=== PATIENT | male | born 1960 | race Caucasian/White ===

== ENCOUNTER → 2017-05-21 | Outpatient (CLI) | payer MEDICAID ==
[~2017-05-21] MED LIST: CATHETER FLUSH 10 ML SYR IV PRN
[2017-05-21 08:08] LABS: BASOPHILS % (AUTO) 0 % (0-10); EOSINOPHILS % (AUTO) 1 % (0-10); HEMATOCRIT 42 % (40-54); HEMOGLOBIN 14.3 G/DL (13.3-17.7); LYMPHOCYTES # (AUTO) 2.6 X 10^3 (1.0-4.0); LYMPHOCYTES % (AUTO) 36 % (12-44); MEAN CORPUSCULAR HEMOGLOBIN 28 PG (25-34); MEAN CORPUSCULAR HGB CONC 34 G/DL (32-36); MEAN CORPUSCULAR VOLUME 83 FL (80-99); MEAN PLATELET VOLUME 11.1 FL (7.4-10.4); MONOCYTES # (AUTO) 0.8 X 10^3 (0.0-1.0); MONOCYTES % (AUTO) 11 % (0-12); NEUTROPHILS # (AUTO) 3.7 X 10^3 (1.8-7.8); NEUTROPHILS % (AUTO) 52 % (42-75); PLATELET COUNT 247 10^3/uL (130-400); RED BLOOD COUNT 5.03 10^6/uL (4.35-5.85); RED CELL DISTRIBUTION WIDTH 13.8 % (10.0-14.5); WHITE BLOOD COUNT 7.2 10^3/uL (4.3-11.0)
[2017-05-21 08:31] LABS: ALANINE AMINOTRANSFERASE 21 U/L (0-55); ALKALINE PHOSPHATASE 112 U/L (40-136); BILIRUBIN,TOTAL 0.5 MG/DL (0.1-1.0); BUN/CREATININE RATIO 20; CALCIUM 9.7 MG/DL (8.5-10.1); CARBON DIOXIDE 23 MMOL/L (21-32); CHLORIDE 106 MMOL/L (98-107); CHOLESTEROL 161 MG/DL (< 200); CREATININE SERUM 0.96 MG/DL (0.60-1.30); GFR ESTIMATED > 60; GLUCOSE 111 MG/DL (70-105); HDL CHOLESTEROL 40 MG/DL (40-60); MAGNESIUM 2.2 MG/DL (1.8-2.4); POTASSIUM 4.1 MMOL/L (3.6-5.0); SODIUM 140 MMOL/L (135-145); TOTAL PROTEIN 7.3 GM/DL (6.4-8.2); TRIGLYCERIDES 98 MG/DL (<150); VLDL CHOLESTEROL 20 MG/DL (5-40)
[2017-05-21 08:57] LABS: ERYTHROCYTE SEDIMENTATION RATE 14 MM/HR (0-30)
[2017-05-21 09:00] VITALS: BP 114/82
[2017-05-21 09:15] VITALS: BP 139/90
[2017-05-21 09:21] VITALS: BP 112/60
== END ==
LOC: CARD 07:43
PROVIDERS: ATTEND Internal Medicine Cardiovascular Disease
DX: J43.8 Other emphysema (principal); R06.02 Shortness of breath; R07.89 Other chest pain; G47.33 Obstructive sleep apnea (adult) (pediatric); E78.4 Other hyperlipidemia; I73.9 Peripheral vascular disease, unspecified
CPT/HCPCS: 36415; 78452; 80053; 80061; 83735; 84443; 85025; 85652; 93017

== ENCOUNTER → 2017-05-27 | Outpatient (CLI) | payer MEDICAID | LOC: CARD 10:16 | PROVIDERS: ATTEND Internal Medicine Cardiovascular Disease | DX: R06.02 Shortness of breath (principal); R07.89 Other chest pain; J43.8 Other emphysema; G47.33 Obstructive sleep apnea (adult) (pediatric); E78.4 Other hyperlipidemia; I73.9 Peripheral vascular disease, unspecified | CPT/HCPCS: 93306 ==

== ENCOUNTER → 2017-06-30 | Outpatient (CLI) | payer MEDICAID | LOC: RAD 13:13 | PROVIDERS: ATTEND Nurse Practitioner Family | DX: I73.9 Peripheral vascular disease, unspecified (principal) | CPT/HCPCS: 93923 ==

== ENCOUNTER 2018-09-21 08:41 | Day surgery (SDC) | payer MEDICAID ==
[~2018-09-21] VITALS: Ht 172.7 cm; Wt 86.6 kg
[2018-09-21] VITALS (10 sets, daily range): BP systolic 101–127; BP diastolic 63–90
[2018-09-21] MEDS ORDERED: LIDOCAINE 1% INJ 20 ML 20 ML VIAL ONE (09:15)
[2018-09-21] MEDS ORDERED: HEParin (CATH LAB) 2,000 ML IV ONE (09:15)
[2018-09-21] MEDS ORDERED: NS IV 1000 ML 1,000 ML IV SCH ×2 (09:15→12:41)
--- OUTSIDE RECORDS SUMMARY | 2018-09-21 09:30 | XMS REPORT ---
Author Author Re Suarez Organization [facility] Address [address] [place] [id number] Care Team Providers Care Gun Tester Name Role Phone Re Suarez PCP Allergies and Adverse Reactions Name Reaction Notes Flexeril swelling Plan of Treatment Not available. Medications Active Name Start Date Estimated Completion Date SIG Comments Aspirin Oral Tablet 81 mg take 1 tablet (81 mg) by oral route once daily Albuterol Sulfate Inhalation HFA Aerosol Inhaler 90 mcg/Actuation inhale 2 puffs by inhalation route every 4 hours as needed Pravastatin Oral Tablet 20 mg take 1 tablet (20 mg) by oral route once daily B12 5,000-100 mcg sublingual lozenge ranitidine HCl 150 mg oral capsule Name Start Date Expiration Date SIG Comments hydrocodone-acetaminophen oral tablet 7.5-325 mg 12/05/2014 take 1 tablet by oral route every 6 hours as needed for pain Augmentin 875-125 mg oral tablet 03/24/2018 03/31/2018 take 1 tablet by oral route every 12 hours for 7 days amoxicillin 500 mg oral capsule 05/28/2018 06/07/2018 take 1 capsule (500 mg) by oral route every 12 hours for 10 days prednisone 20 mg oral tablet 05/28/2018 06/02/2018 take 1 tablet (20 mg) by oral route once daily for 5 days Discontinued Name Start Date Discontinued Date SIG Comments Singulair Oral Tablet 10 mg 05/28/2018 take 1 tablet by oral route daily as needed Vitamin D Oral Capsule 50,000 unit 05/28/2018 take 1 capsule (50,000 unit) by oral route once weekly Baclofen Oral Tablet 10 mg 04/29/2010 03/13/2014 take 1 tablet (10 mg) by oral route 3 times per day Problem List Not available. Vital Signs Date Time BP-Sys(mm[Hg] BP-Yvrose(mm[Hg]) HR(bpm) RR(rpm) Temp WT HT HC BMI BSA BMI Percentile O2 Sat(%) 05/28/2018 12:17:00 PM 128 mmHg 90 mmHg 84 bpm 18 rpm 98.2 F 189.5 lbs 66.5 in 30.1276 kg/m 2.0082 m 97 % 03/24/2018 5:44:00 PM 128 mmHg 68 mmHg 63 bpm 20 rpm 97.5 F 179.375 lbs 98 % 12/01/2014 8:41:00 AM 110 mmHg 60 mmHg 62 bpm 18 rpm 98.5 F 98 % 03/13/2014 9:34:00 AM 120 mmHg 75 mmHg 62 bpm 18 rpm 98.6 F 166 lbs 97 % 04/29/2010 10:57:00 AM 110 mmHg 80 mmHg 70 bpm 18 rpm 95.7 F 99 % 04/09/2009 10:35:00 AM 122 mmHg 90 mmHg 70 bpm 16 rpm 96.2 F 171.312 lbs 66.5 in 27.236 kg/m 1.9094 m Social History Name Description Comments Tobacco Former smoker quit 2014 11 th grade highest level Smoker Current - status unknown Active but no formal exercise self employed Did not serve History of Procedures Date Ordered Description Order Status 03/13/2014 12:00 AM COMPLETE CBC W/AUTO DIFF WBC Reviewed 03/13/2014 12:00 AM GLYCOSYLATED HEMOGLOBIN TEST Reviewed 03/13/2014 12:00 AM BLOOD TYPING SEROLOGIC ABO Reviewed 12/01/2014 12:00 AM Orthopedic Consult Reviewed Results Summary Date and Description Results 03/13/2014 10:30 AM WBC 9.8 RBC 4.84 HGB 14.30 g/dLHCT 41.90 %MCV 87.0 fLMCH 29.50 pgMCHC 34.10 g/dLRDW SD 44 RDW CV 14.0 %MPV 11.80 fLPLT 212 NRBC# 0.00 NRBC% 0.0 %NEUT 62.50 %%LYMP 31.60 %%MONO 5.50 %%EOS 0.30 %%BASO 0.10 %#NEUT 6.15 #LYMP 3.11 #MONO 0.54 #EOS 0.03 #BASO 0.01 MANUAL DIFF NOT IND HGB A1C 6.50 %Est Avg Glucose 139.9 mg/dL History Of Immunizations Not available. History of Past Illness Name Date of Onset Comments Chest Pain Apr 09 2009 10:47AM Chronic Obstructive Pulmonary Disease Apr 09 2009 10:47AM Asthma Chronic Obstructive Pulmonary Disease Seizure disorder Headache Chronic Obstructive Pulmonary Disease Apr 29 2010 10:58AM Low Back Pain Apr 29 2010 10:58AM Fatigue Mar 13 2014 9:36AM Hypoglycemia Mar 13 2014 9:36AM Costochondral chest pain Mar 13 2014 9:36AM Left medial knee pain Mar 13 2014 9:36AM Lumbar back pain Dec 01 2014 8:43AM Spinal stenosis of lumbar region at multiple levels Dec 01 2014 8:43AM Puncture wound Mar 24 2018 5:47PM Acute upper respiratory infection May 28 2018 12:19PM Payers Insurance Name Company Name Plan Name Plan Number Policy Number Policy Group Number Start Date [employer] Better [employer] - RHC Aetna Better [facility] - RHC [id number] N/A [email or web address] Financial Assistance [email or web address] Financial Vanessa [id number] Saturday, 2013 [employer] [place] Plan [employer] [place] [id number] N/A [employer] - [place] - [place] State Plan [employer] - [place] [id number] N/A History of Encounters Visit Date Visit Type Provider 05/28/2018 Office visit Re Suarez FRAUD INVESTIGATOR 04/14/2018 Hospital Derrick Gutierrez MD 03/24/2018 Office visit Cristal Palacios FRAUD INVESTIGATOR 02/12/2018 Hospital Derrick Gutierrez MD 02/08/2018 Hospital Derrick Gutierrez MD 01/18/2018 Hospital Derrick Gutierrez MD 12/19/2017 Hospital Derrick Gutierrez MD 03/06/2017 Hospital Derrick Gutierrez MD 12/01/2014 Office visit Ronal Deleon FRAUD INVESTIGATOR 04/12/2014 Hospital Derrick Gutierrez MD 03/13/2014 Office visit Ronal Deleon FRAUD INVESTIGATOR 03/08/2014 Hospital Derrick Gutierrez MD 02/13/2014 Hospital Derrick Gutierrez MD 06/05/2011 Hospital Derrick Gutierrez MD 04/29/2010 Office visit Beata Chapman MD 05/03/2009 Laboratory Chinmay Lovett MD 05/03/2009 Laboratory Chinmay Lovett MD 04/09/2009 Office visit Beata Chapman MD 03/31/2009 Laboratory Meliton Nixon MD
--- OUTSIDE RECORDS SUMMARY | 2018-09-21 09:30 | XMS REPORT | CCD ---
Author Author AAMIR DHALIWAL Organization Unknown Address [address] [place], [place] [address] Care Team Providers Care Inspector Casing Name Role Phone HANDSHY ER, AXEL ARRIETA Attphys HANDSHY ER, AXEL ARRIETA Prisurg Vital Signs Unknown or Not Available. Allergies Allergy Code Allergy Type Reaction Status CYCLOBENZAPRINE 69423 Drug allergy Active Procedures Procedure Code Procedure Type Date CBC W/ AUTO DIFF (RFLX MAN DIFF IF IND) 1430292 SNOMED CT 04/12/2014 COMPREHENSIVE METABOLIC PANEL 371471771 SNOMED CT 04/12/2014 TROPONIN-I ADV 654166868 SNOMED CT 04/12/2014 D DIMER QUANT 008971528 SNOMED CT 04/12/2014 CULTURE BLOOD 23454763 SNOMED CT 04/12/2014 ^CBC W/AUTO DIFF 7723550 SNOMED CT 04/12/2014 HOLTER MONITOR UP TO [address] 04/12/2014 THYROID PANEL 28996570 SN[address] 04/12/2014 CX CHEST [address] 04/12/2014 History of Immunizations Unknown or Not Available. Problems Unknown or Not Available. Results COMPREHENSIVE METABOLIC PANEL - Collect Date/Time: 04/12/2014 01:25 Test Name Code Test Result Test Units Test Ref Range GLUCOSE 2345-7 107 MG/DL L=70 H=100 SODIUM 2951-2 139 MEQ/L L=135 H=148 POTASSIUM 2823-3 4.1 MEQ/L L=3.5 H=5.3 CHLORIDE 2075-0 105 MEQ/L L=96 H=110 CO2 2028-9 22 MEQ/L L=22 H=29 BUN 3094-0 14 MG/DL L=8 H=22 CREATININE 2160-0 0.9 MG/DL L=0.6 H=1.6 SGOT/AST 1920-8 21 IU/L L=10 H=40 SGPT/ALT 1742-6 20 IU/L L=8 H=54 ALK PHOS 6768-6 71 IU/L L=35 H=115 TOTAL PROTEIN 2885-2 7.3 G/DL L=5.5 H=8.5 ALBUMIN 1751-7 4.1 G/DL L=3.1 H=5.4 TOTAL BILI 1975-2 0.4 MG/DL L=0.0 H=1.5 CALCIUM 58660-3 9.6 MG/DL L=8.2 H=10.6 AGE 53 yrs GFR NonAA 88 GFR AA 107 eGFR 60 mL/min/1.7 eGFR AA* 60 mL/min/1.7 CBC W/ AUTO DIFF (RFLX MAN DIFF IF IND) - Collect Date/Time: 04/12/2014 01:25 Test Name Code Test Result Test Units Test Ref Range WBC 32440-5 9.7 TH/CMM L=4.5 H=10.8 RBC 789-8 4.66 ML/CMM L=4.70 H=6.10 HGB 718-7 13.9 G/DL L=14.0 H=18.0 HCT 4544-3 40.5 % L=42.0 H=52.0 MCV 87 FL L=81 H=99 MCH 29.8 PG L=27.0 H=33.0 MCHC 34.3 G/DL L=31.0 H=36.0 RDW SD 42 FL L=36 H=50 RDW CV 13.3 % L=0.0 H=14.8 MPV 12.5 FL L=9.3 H=12.5 PLT 777-3 181 TH/CMM L=130 H=440 NRBC# 0.00 TH/CMM L=0.00 H=0.00 NRBC% 0.0 /100WBC L=0.0 H=2.0 %NEUT 58.3 % %LYMP 34.3 % %MONO 6.7 % %EOS 0.5 % %BASO 0.2 % #NEUT 5.65 TH/CMM L=2.10 H=8.20 #LYMP 3.33 TH/CMM L=0.90 H=5.20 #MONO 0.65 TH/CMM L=0.16 H=1.00 #EOS 0.05 TH/CMM L=0.00 H=0.80 #BASO 0.02 TH/CMM L=0.00 H=0.20 MANUAL DIFF NOT IND N/A D DIMER QUANT - Collect Date/Time: 04/12/2014 01:25 Test Name Code Test Result Test Units Test Ref Range D-DIMER QUANT 94902-8 <0.19 MG/L FEU L=0.00 H=0.50 TROPONIN-I ADV - Collect Date/Time: 04/12/2014 01:25 Test Name Code Test Result Test Units [place] [address]-5 <0.04 ng/mL L=0.04 H=0.40 THYROID PANEL - Collect Date/Time: 04/12/2014 01:25 Test Name Code Test Result Test Units Test Ref Range FREE T4 3024-7 1.05 NG/DL L=0.71 H=1.85 TSH 84132-2 3.98 mIU/L L=0.35 H=4.94 Active Medications Unknown or Not Available. Medications Administered During Visit Unknown or Not Available. Encounters Encounter Diagnosis Diagnosis Code Start Date PAINFUL RESPIRATION 92493 04/12/2014 Social History Smoking Status Code Start Date End Date Current some day smoker [id number] Patient Decision Aids Unknown or Not Available. Discharge Instructions You were admitted to [facility] on 04/12/2014 with a principal diagnosis of PAINFUL RESPIRATION. You were discharged from [facility] on 04/12/2014. Should you have any questions prior to discharge, please contact a member of your healthcare team. If you have left the hospital and have any questions, please contact your primary care physician. Chief Complaint and Reason For Visit Chief Complaint Date of Onset CHEST WALL PAIN SHOULDER PAIN NECK PAIN Function Status Unknown or Not Available. Referral/Transition of Care Unknown or Not Available.
--- OUTSIDE RECORDS SUMMARY | 2018-09-21 09:30 | XMS REPORT ---
Author Cristal Palumbo [facility] Address [address] [place], [place] [address] Care Team Providers Care Shrimp Boat Captain Name Role Phone Cristal Guzmán PCP Allergies and Adverse Reactions Name Reaction Notes Flexeril swelling Plan of Treatment Not available. Medications Active Name Start Date Estimated Completion Date SIG Comments Aspirin Oral Tablet 81 mg take 1 tablet (81 mg) by oral route once daily Singulair Oral Tablet 10 mg take 1 tablet by oral route daily as needed Albuterol Sulfate Inhalation HFA Aerosol Inhaler 90 mcg/Actuation inhale 2 puffs by inhalation route every 4 hours as needed Pravastatin Oral Tablet 20 mg take 1 tablet (20 mg) by oral route once daily Vitamin D Oral Capsule 50,000 unit take 1 capsule (50,000 unit) by oral route once weekly hydrocodone-acetaminophen oral tablet 7.5-325 mg 12/05/2014 take 1 tablet by oral route every 6 hours as needed for pain Augmentin 875-125 mg oral tablet 03/24/2018 03/31/2018 take 1 tablet by oral route every 12 hours for 7 days Discontinued Name Start Date Discontinued Date SIG Comments Baclofen Oral Tablet 10 mg 04/29/2010 03/13/2014 take 1 tablet (10 mg) by oral route 3 times per day Problem List Not available. Vital Signs Date Time BP-Sys(mm[Hg] BP-Yvrose(mm[Hg]) HR(bpm) RR(rpm) Temp WT HT HC BMI BSA BMI Percentile O2 Sat(%) 03/24/2018 5:44:00 PM 128 mmHg 68 mmHg [...] 1.9094 m Social History Name Description Comments 11 th grade highest level Smoker Current [...] 8:43AM Puncture wound Mar 24 2018 5:47PM Payers Insurance Name Company Name Plan Name Plan Number Policy Number Policy Group Number Start Date [employer] [place] [employer] [place] [id number] N/A [employer] Vanessa [id number] Saturday, 2013 History of Encounters Visit Date Visit Type Provider 03/24/2018 Office visit Cristal Guzmán DIESEL DINKEY OPERATOR 01/18/2018 Hospital Derrick Gutierrez MD 12/19/2017 [facility] Derrick Gutierrez MD 03/06/2017 [facility] Derrick Gutierrez MD 12/01/2014 Office visit Ronal Deleon DIESEL DINKEY OPERATOR 04/12/2014 [facility] Derrick Gutierrez MD 03/13/2014 Office visit Ronal Deleon DIESEL DINKEY OPERATOR 03/08/2014 [facility] Derrick Gutierrez MD 02/13/2014 [facility] Derrick Gutierrez MD 06/05/2011 [facility] Derrick Gutierrez MD 04/29/2010 Office visit Beata Chapman MD 05/03/2009 Laboratory Chinmay Lovett MD 05/03/2009 Laboratory Chinmay Lovett MD 04/09/2009 Office visit Beata Chapman MD 03/31/2009 Laboratory Meliton Nixon MD
--- OUTSIDE RECORDS SUMMARY | 2018-09-21 09:30 | XMS REPORT | CCD ---
Author Author DEMARCUS LOZOYA Organization Unknown Address [address] [place] [address] Care Team Providers Care Tear Down Matcher Name Role Phone [facility], JOSEPH DO Attphys [facility], JOSEPH DO Prisurg Allergies Allergy Code Allergy Type Reaction Status CYCLOBENZAPRINE 80328 Drug allergy Active Active Medications Unknown or Not Available. Problems Unknown or Not Available. Procedures Unknown or Not Available. Results Unknown or Not Available. Encounters Encounter Diagnosis Diagnosis Code Start Date Other superficial bite, right lower leg, initial encounter [id number] 09/08/2016 Function Status Unknown or Not Available. History of Immunizations Unknown or Not Available. Social History Smoking Status Code Start Date End Date Current some day smoker [id number] Vital Signs Unknown or Not Available. Function Status Unknown or Not Available. Goals Unknown or Not Available. ASSESSMENTS Unknown or Not Available. Health Concerns Section Unknown or Not Available.
--- OUTSIDE RECORDS SUMMARY | 2018-09-21 09:30 | XMS REPORT | CCD ---
Author Author MELIA MACKENZIE Unknown Address [address] [place] [address] Care Team Providers Care Radiation Officer Name Role Phone MISTI LEOS MD Attphys 0 MISTI LEOS MD Prisurg 0 Allergies Allergy Code Allergy Type Reaction Status CYCLOBENZAPRINE 96505 Drug allergy Active Active Medications Unknown or Not Available. Problems Unknown or Not Available. Procedures Procedure Code Procedure Type Date CT ABD AND PELVIS W/CONTRAST 267761286 SNOMED CT 03/06/2017 CX CHEST [address] 03/06/[address] 03/06/2017 TROPONIN-I ADV 194023217 SNOMED CT 03/06/[address] 03/06/2017 CBC W/ AUTO DIFF (RFLX MAN DIFF IF IND) 6996782 SNOMED CT 03/06/2017 COMPREHENSIVE METABOLIC PANEL 503133931 SNOMED CT 03/06/[address] 03/06/2017 ^CBC W/AUTO DIFF 0567684 SNOMED CT 03/06/2017 LOCM 300-349 MG/ML, PER ML 174526650 SNOMED CT 03/06/2017 Results COMPREHENSIVE METABOLIC PANEL - Collect Date/Time: 03/06/2017 01:45 Test Name Code Test Result Test Units Test Ref Range GLUCOSE 2345-7 153 MG/DL L=70 H=100 SODIUM 2951-2 140 MEQ/L L=135 H=148 POTASSIUM 2823-3 3.4 MEQ/L L=3.5 H=5.3 CHLORIDE 2075-0 109 MEQ/L L=96 H=110 CO2 2028-9 24 MEQ/L L=22 H=29 BUN 3094-0 19 MG/DL L=8 H=22 CREATININE 2160-0 1.0 MG/DL L=0.6 H=1.6 SGOT/AST 1920-8 20 IU/L L=10 H=40 SGPT/ALT 1742-6 23 IU/L L=8 H=54 ALK PHOS 6768-6 117 IU/L L=35 H=115 TOTAL PROTEIN 2885-2 6.7 G/DL L=5.5 H=8.5 ALBUMIN 1751-7 3.7 G/DL L=3.1 H=5.4 TOTAL BILI 1975-2 0.4 MG/DL L=0.0 H=1.5 CALCIUM 78616-7 9.0 MG/DL L=8.2 H=10.6 AGE 56 yrs GFR NonAA 77 GFR AA 93 eGFR >60 N/A eGFR AA* >60 N/A LIPASE - Collect Date/Time: 03/06/2017 01:45 Test Name Code Test Result Test Units Test Ref Range LIPASE 3040-3 26 U/L L=8 H=78 CBC W/ AUTO DIFF (RFLX MAN DIFF IF IND) - Collect Date/Time: 03/06/2017 01:45 Test Name Code Test Result Test Units Test Ref Range WBC 58807-4 6.5 TH/CMM L=4.5 H=10.8 RBC 789-8 4.68 ML/CMM L=4.70 H=6.10 HGB 718-7 13.1 G/DL L=14.0 H=18.0 HCT 4544-3 39.9 % L=42.0 H=52.0 MCV 85 FL L=81 H=99 MCH 28.0 PG L=27.0 H=33.0 MCHC 32.8 G/DL L=31.0 H=36.0 RDW SD 43 FL L=36 H=50 RDW CV 13.7 % L=0.0 H=14.8 MPV 11.5 FL L=9.3 H=12.5 PLT 777-3 196 TH/CMM L=130 H=440 NRBC# 0.00 TH/CMM L=0.00 H=0.00 NRBC% 0.0 /100WBC L=0.0 H=2.0 %NEUT 49.2 % %LYMP 37.9 % %MONO 11.0 % %EOS 1.1 % %BASO 0.5 % #NEUT 3.21 TH/CMM L=2.10 H=8.20 #LYMP 2.47 TH/CMM L=0.90 H=5.20 #MONO 0.72 TH/CMM L=0.16 H=1.00 #EOS 0.07 TH/CMM L=0.00 H=0.80 #BASO 0.03 TH/CMM L=0.00 H=0.20 MANUAL DIFF NOT IND N/A PT/PTT - Collect Date/Time: 03/06/2017 01:45 Test Name Code Test Result Test Units Test Ref Range PROTIME 5964-2 10.2 SEC L=9.9 H=11.9 INR 06498-1 0.9 PTT 3173-2 28.4 SEC L=22.2 H=37.2 BNP - Collect Date/Time: 03/06/2017 01:45 Test Name Code Test Result Test Units Test Ref Range BNP 66926-9 35 PG/ML L=0 H=100 TROPONIN-I ADV - Collect Date/Time: 03/06/2017 01:45 Test Name Code Test Result Test Units [place] [address]-3 <0.04 ng/mL L=0.04 H=0.40 MAGNESIUM - Collect Date/Time: 03/06/2017 01:45 Test Name Code Test Result Test Units Test Ref Range MAGNESIUM 24724-3 2.0 MG/DL L=1.7 H=2.8 Function Status Unknown or Not Available. History of Immunizations Immunization Code Date Tdap 115 06/04/2017 Plan of Treatment Unknown or Not Available. Social History Smoking Status Code Start Date End Date Current some day smoker [id number] Vital Signs Unknown or Not Available. Function Status Unknown or Not Available. Goals Unknown or Not Available. ASSESSMENTS Unknown or Not Available. Health Concerns Section Unknown or Not Available.
--- OUTSIDE RECORDS SUMMARY | 2018-09-21 09:31 | XMS REPORT ---
Author Author ROSENDO HANEY Organization [facility] Address [address] [place] [address] Care Team Providers Care Visual Manager Name Role Phone ROSENDO HANEY Unavailable PROBLEMS Type Condition ICD9-CM Code [id number] Code Onset Dates Condition Status SNOMED Code Problem Parkinsons G20 Active [id number] ALLERGIES No Information ENCOUNTERS Encounter Location Date Diagnosis [facility] [address] [address] Apr, Parkinsons G20 [facility] [address] [phone] September, Dental examination Z01.20 IMMUNIZATIONS No Known Immunizations SOCIAL HISTORY Never Assessed REASON FOR VISIT intake PLAN OF CARE VITAL SIGNS MEDICATIONS Medication Instructions Dosage Frequency Start Date End Date Duration Status Pravastatin Sodium 40 MG Orally Once a day 1 tablet 24h 30 day(s) Active Vitamin B-12 1000 MCG Orally Once a day 1 tablet 24h 30 day(s) Active Ranitidine Active Low-Dose Aspirin Active RESULTS No Results PROCEDURES Procedure Date Ordered Result Body Site Psych diagnostic evaluation, established patient Apr 05, 2018 INSTRUCTIONS MEDICATIONS ADMINISTERED No Known Medications MEDICAL (GENERAL) HISTORY Type Description Date Medical History Hear attack Medical History Blood thinner Medical History Asthma Medical History COPD Medical History Fainting Medical History Back Trouble Surgical History No Surgical history information Hospitalization History Blood clotin R leg 12/06/2014
--- OUTSIDE RECORDS SUMMARY | 2018-09-21 09:31 | XMS REPORT | CCD ---
Author Author AAMIR DHALIWAL Organization Unknown Address [address] [place], [place] [address] Care Team Providers Care Biztalk Developer Name Role Phone [facility], JOSEPH DO Attphys [facility], JOSEPH DO Prisurg Vital Signs Unknown or Not Available. Allergies Allergy Code Allergy Type Reaction Status CYCLOBENZAPRINE 41143 Drug allergy Active Procedures Procedure Code Procedure Type Date KNEE [address] 03/08/2014 CX CHEST [address] 03/08/2014 ^CKMB 57297415 SNOMED CT 03/08/2014 ^CBC W/AUTO DIFF 4598738 SNOMED CT 03/08/2014 C REACTIVE PROTEIN 45486748 SNOMED CT 03/08/2014 CPK WITH CKMB 793796823 SNOMED CT 03/08/2014 TROPONIN-I ADV 163347650 SNOMED CT 03/08/2014 COMPREHENSIVE METABOLIC PANEL 932065616 SNOMED CT 03/08/2014 CBC W/ AUTO DIFF (RFLX MAN DIFF IF IND) 1394868 SNOMED CT 03/08/2014 History of Immunizations Unknown or Not Available. Problems Unknown or Not Available. Results COMPREHENSIVE METABOLIC PANEL - Collect Date/Time: 03/08/2014 07:55 Test Name Code Test Result Test Units Test Ref Range GLUCOSE 2345-7 102 MG/DL L=70 H=100 SODIUM 2951-2 136 MEQ/L L=135 H=148 POTASSIUM 2823-3 4.2 MEQ/L L=3.5 H=5.3 CHLORIDE 2075-0 104 MEQ/L L=96 H=110 CO2 2028-9 24 MEQ/L L=22 H=29 BUN 3094-0 12 MG/DL L=8 H=22 CREATININE 2160-0 0.8 MG/DL L=0.6 H=1.6 SGOT/AST 1920-8 23 IU/L L=10 H=40 SGPT/ALT 1742-6 22 IU/L L=8 H=54 ALK PHOS 6768-6 74 IU/L L=35 H=115 TOTAL PROTEIN 2885-2 7.4 G/DL L=5.5 H=8.5 ALBUMIN 1751-7 4.2 G/DL L=3.1 H=5.4 TOTAL BILI 1975-2 0.6 MG/DL L=0.0 H=1.5 CALCIUM 49137-6 10.2 MG/DL L=8.2 H=10.6 AGE 53 yrs GFR NonAA 101 GFR AA 122 eGFR 60 mL/min/1.7 eGFR AA* 60 mL/min/1.7 CBC W/ AUTO DIFF (RFLX MAN DIFF IF IND) - Collect Date/Time: 03/08/2014 07:55 Test Name Code Test Result Test Units Test Ref Range WBC 62945-2 9.1 TH/CMM L=4.5 H=10.8 RBC 789-8 4.79 ML/CMM L=4.70 H=6.10 HGB 718-7 14.2 G/DL L=14.0 H=18.0 HCT 4544-3 41.7 % L=42.0 H=52.0 MCV 87 FL L=81 H=99 MCH 29.6 PG L=27.0 H=33.0 MCHC 34.1 G/DL L=31.0 H=36.0 RDW SD 46 FL L=36 H=50 MPV 11.3 FL L=9.3 H=12.5 PLT 777-3 205 TH/CMM L=130 H=440 %NEUT 66.2 % %LYMP 28.8 % %MIXED 5.00 % L=2.00 H=25.00 #NEUT 6.00 TH/CMM L=2.10 H=8.20 #LYMP 2.60 TH/CMM L=0.90 H=5.20 #MIXED 0.50 TH/CMM MANUAL DIFF NOT IND N/A C REACTIVE PROTEIN - Collect Date/Time: 03/08/2014 07:55 Test Name Code Test Result Test Units Test Ref Range C REACTIVE PROTEIN 1988- <0.5 MG/DL L=0.0 H=1.0 CPK WITH CKMB - Collect Date/Time: 03/08/2014 07:55 Test Name Code Test Result Test Units Test Ref Range CPK 2157-6 160 IU/L L=0 H=235 [place] [address]-5 1.6 NG/ML L=0.0 H=9.5 INDEX 1.0 % L=0.0 H=3.5 TROPONIN-I ADV - Collect Date/Time: 03/08/2014 07:55 Test Name Code Test Result Test Units [place] [address]-1 <0.04 ng/mL L=0.04 H=0.40 Medications Unknown or Not Available. Medications Administered Unknown or Not Available. Encounters Encounter Diagnosis Diagnosis Code Start Date PAINFUL RESPIRATION 05477 03/08/2014 Social History Smoking Status Code Start Date End Date Current some day smoker [id number] Patient Decision Aids Unknown or Not Available. Discharge Instructions You were admitted to [facility] on 03/08/2014 with a principal diagnosis of PAINFUL RESPIRATION. You were discharged from [facility] on 03/08/2014. Should you have any questions prior to discharge, please contact a member of your healthcare team. If you have left the hospital and have any questions, please contact your primary care physician. Chief Complaint and Reason For Visit Chief Complaint Date of Onset CHEST PAIN ABDOMINAL PAIN KNEE PAIN Function Status Unknown or Not Available. Referral/Transition of Care Unknown or Not Available.
--- OUTSIDE RECORDS SUMMARY | 2018-09-21 09:31 | XMS REPORT | Continuity of Care Document ---
Author Organization Unknown Address Unknown Allergies Active Description Code Type Severity Reaction Onset Reported/Identified Relationship to Patient Clinical Status Yes CYCLOBENZAPRINE [id number] DRUG N/A N/A Yes No Allergy Information Available [id number] Drug Allergy Unknown N/A 05/21/2017 Medications There is no data. Problems Date Dx Coded Attending Type Code Diagnosis Diagnosed By 05/22/2017 EILEEN DURHAM MD, FACC FACP CCDS Ot E78.4 OTHER HYPERLIPIDEMIA 05/22/2017 MARVA ARRIETA FACC, ALI FACP CCDS Ot G47.33 OBSTRUCTIVE SLEEP APNEA (ADULT) (PEDIATR 05/22/2017 MARVA ARRIETA FACC, ALI FACP CCDS Ot I73.9 PERIPHERAL VASCULAR DISEASE, UNSPECIFIED 05/22/2017 EILEEN DURHAM MD, FACC FACP CCDS Ot J43.8 OTHER EMPHYSEMA 05/22/2017 MARVA ARRIETA FACC, ALI FACP CCDS Ot R06.02 SHORTNESS OF BREATH 05/22/2017 MARVA ARRIETA FACC, ALI FACP CCDS Ot R07.89 OTHER CHEST PAIN 05/28/2017 MARVA ARRIETA FACC, ALI FACP CCDS Ot E78.4 OTHER HYPERLIPIDEMIA 05/28/2017 MARVA ARRIETA FACC, ALI FACP CCDS Ot G47.33 OBSTRUCTIVE SLEEP APNEA (ADULT) (PEDIATR 05/28/2017 MARVA ARRIETA FACC, EILEEN FACP CCDS Ot I73.9 PERIPHERAL VASCULAR DISEASE, UNSPECIFIED 05/28/2017 MARVA ARRIETA FACC ALI FACP CCDS Ot J43.8 OTHER EMPHYSEMA 05/28/2017 MARVA ARRIETA FACC, ALI FACP CCDS Ot R06.02 SHORTNESS OF BREATH 05/28/2017 MARVA ARRIETA FACC, ALI FACP CCDS Ot R07.89 OTHER CHEST PAIN 06/09/2017 MARVA ARRIETA FACC, ALI FACP CCDS Ot E78.4 OTHER HYPERLIPIDEMIA 06/09/2017 MARVA ARRIETA FACC, ALI FACP CCDS Ot G47.33 OBSTRUCTIVE SLEEP APNEA (ADULT) (PEDIATR 06/09/2017 MARVA ARRIETA FACC, ALI FACP CCDS Ot I73.9 PERIPHERAL VASCULAR DISEASE, UNSPECIFIED 06/09/2017 MARVA ARRIETA FACC, ALI FACP CCDS Ot J43.8 OTHER EMPHYSEMA 06/09/2017 MARVA ARRIETA FACC, ALI FACP CCDS Ot R06.02 SHORTNESS OF BREATH 06/09/2017 MARVA ARRIETA FACC, ALI FACP CCDS Ot R07.89 OTHER CHEST PAIN 06/16/2017 MARVA ARRIETA FACC, ALI FACP CCDS Ot E78.4 OTHER HYPERLIPIDEMIA 06/16/2017 MARVA ARRIETA FACC, ALI FACP CCDS Ot G47.33 OBSTRUCTIVE SLEEP APNEA (ADULT) (PEDIATR 06/16/2017 MARVA ARRIETA FACC, ALI FACP CCDS Ot I73.9 PERIPHERAL VASCULAR DISEASE, UNSPECIFIED 06/16/2017 MARVA ARRIETA FACC, ALI FACP CCDS Ot J43.8 OTHER EMPHYSEMA 06/16/2017 MARVA ARRIETA FACC, ALI FACP CCDS Ot R06.02 SHORTNESS OF BREATH 06/16/2017 MARVA MENDEZC, ALI FACP CCDS Ot R07.89 OTHER CHEST PAIN 06/30/2017 MARVA MENDEZC, ALI FACP CCDS Ot E78.4 OTHER HYPERLIPIDEMIA 06/30/2017 MARVA ARRIETA FACC, ALI FACP CCDS Ot G47.33 OBSTRUCTIVE SLEEP APNEA (ADULT) (PEDIATR 06/30/2017 MARVA MENDEZC, ALI FACP CCDS Ot I73.9 PERIPHERAL VASCULAR DISEASE, UNSPECIFIED 06/30/2017 MARVA ARRIETA FACC, ALI FACP CCDS Ot J43.8 OTHER EMPHYSEMA 06/30/2017 MARVA MENDEZC, ALI FACP CCDS Ot R06.02 SHORTNESS OF BREATH 06/30/2017 MARVA MENDEZC, ALI FACP CCDS Ot R07.89 OTHER CHEST PAIN 06/30/2017 MARVA ARRIETA FACC, ALI FACP CCDS Ot E78.4 OTHER HYPERLIPIDEMIA 06/30/2017 MARVA ARRIETA FACC, ALI FACP CCDS Ot G47.33 OBSTRUCTIVE SLEEP APNEA (ADULT) (PEDIATR 06/30/2017 MARVA ARRIETA FACC, ALI FACP CCDS Ot I73.9 PERIPHERAL VASCULAR DISEASE, UNSPECIFIED 06/30/2017 MARVA ARRIETA FACC, ALI FACP CCDS Ot J43.8 OTHER EMPHYSEMA 06/30/2017 MARVA MD FACC, ALI FACP CCDS Ot R06.02 SHORTNESS OF BREATH 06/30/2017 MARVA MD FACC, ALI FACP CCDS Ot R07.89 OTHER CHEST PAIN 06/30/2017 ARMENJOEY TRUDY L LANDSCAPE ACCOUNT MANAGER Ot I73.9 PERIPHERAL VASCULAR DISEASE, UNSPECIFIED 09/20/2018 MARVA MD FACC, ALI FACP CCDS Ot E78.4 OTHER HYPERLIPIDEMIA 09/20/2018 MARVA MD FACC, ALI FACP CCDS Ot G47.33 OBSTRUCTIVE SLEEP APNEA (ADULT) (PEDIATR 09/20/2018 MARVA MD FACC, ALI FACP CCDS Ot I73.9 PERIPHERAL VASCULAR DISEASE, UNSPECIFIED 09/20/2018 MARVA MD FACC, ALI FACP CCDS Ot J43.8 OTHER EMPHYSEMA 09/20/2018 MARVA MD FACC, ALI FACP CCDS Ot R06.02 SHORTNESS OF BREATH 09/20/2018 MARVA MD FACC, ALI FACP CCDS Ot R07.89 OTHER CHEST PAIN 09/20/2018 MARVA MD FACC, ALI FACP CCDS Ot E78.4 OTHER HYPERLIPIDEMIA 09/20/2018 MARVA MD FACC, ALI FACP CCDS Ot G47.33 OBSTRUCTIVE SLEEP APNEA (ADULT) (PEDIATR 09/20/2018 MARVA MD FACC, ALI FACP CCDS Ot I73.9 PERIPHERAL VASCULAR DISEASE, UNSPECIFIED 09/20/2018 MARVA MD FACC, ALI FACP CCDS Ot J43.8 OTHER EMPHYSEMA 09/20/2018 MARVA MD FACC, ALI FACP CCDS Ot R06.02 SHORTNESS OF BREATH 09/20/2018 MARVA MD FAC, ALI FACP CCDS Ot R07.89 OTHER CHEST PAIN 09/20/2018 ALYSSA TRUDY L LANDSCAPE ACCOUNT MANAGER Ot I73.9 PERIPHERAL VASCULAR DISEASE, UNSPECIFIED Procedures There is no data. Results Test Result Range Complete blood count (CBC) with automated white blood cell (WBC) differential - 05/21/17 07:57 Blood leukocytes automated count (number/volume) 7.2 10*3/uL 4.3-11.0 Blood erythrocytes automated count (number/volume) 5.03 10*6/uL 4.35-5.85 Venous blood hemoglobin measurement (mass/volume) 14.3 g/dL 13.3-17.7 Blood hematocrit (volume fraction) 42 % 40-54 Automated erythrocyte mean corpuscular volume 83 [foz_us] 80-99 Automated erythrocyte mean corpuscular hemoglobin (mass per erythrocyte) 28 pg 25-34 Automated erythrocyte mean corpuscular hemoglobin concentration measurement (mass/volume) 34 g/dL 32-36 Automated erythrocyte distribution width ratio 13.8 % 10.0- 14.5 Automated blood platelet count (count/volume) 247 10*3/uL 130-400 Automated blood platelet mean volume measurement 11.1 [foz_us] 7.4-10.4 Automated blood neutrophils/100 leukocytes 52 % 42-75 Automated blood lymphocytes/100 leukocytes 36 % 12-44 Blood monocytes/100 leukocytes 11 % 0-12 Automated blood eosinophils/100 leukocytes 1 % 0-10 Automated blood basophils/100 leukocytes 0 % 0-10 Blood neutrophils automated count (number/volume) 3.7 10*3 1.8-7.8 Blood lymphocytes automated count (number/volume) 2.6 10*3 1.0-4.0 Blood monocytes automated count (number/volume) 0.8 10*3 0.0- 1.0 Automated eosinophil count 0.0 10*3/uL 0.0-0.3 Automated blood basophil count (count/volume) 0.0 10*3/uL 0.0-0.1 Comprehensive metabolic panel - 05/21/17 07:57 Serum or plasma sodium measurement (moles/volume) 140 mmol/L 135-145 Serum or plasma potassium measurement (moles/volume) 4.1 mmol/L 3.6-5.0 Serum or plasma chloride measurement (moles/volume) 106 mmol/L 98-107 Carbon dioxide 23 mmol/L 21-32 Serum or plasma anion gap determination (moles/volume) 11 mmol/L 5-14 Serum or plasma urea nitrogen measurement (mass/volume) 19 mg/dL 7-18 Serum or plasma creatinine measurement (mass/volume) 0.96 mg/dL 0.60-1.30 Serum or plasma urea nitrogen/creatinine mass ratio 20 NRG Serum or plasma creatinine measurement with calculation of estimated glomerular filtration rate > NRG Serum or plasma glucose measurement (mass/volume) 111 mg/dL 70-105 Serum or plasma calcium measurement (mass/volume) 9.7 mg/dL 8.5-10.1 Serum or plasma total bilirubin measurement (mass/volume) 0.5 mg/dL 0.1-1.0 Serum or plasma alkaline phosphatase measurement (enzymatic activity/volume) 112 U/L 40-136 Serum or plasma aspartate aminotransferase measurement (enzymatic activity/volume) 19 U/L 5-34 Serum or plasma alanine aminotransferase measurement (enzymatic activity/volume) 21 U/L 0-55 Serum or plasma protein measurement (mass/volume) 7.3 g/dL 6.4-8.2 Serum or plasma albumin measurement (mass/volume) 4.0 g/dL 3.2-4.5 Magnesium - 05/21/17 07:57 Magnesium 2.2 mg/dL 1.8-2.4 Lipid 1996 panel - 05/21/17 07:57 Serum or plasma triglyceride measurement (mass/volume) 98 mg/dL <150 Serum or plasma cholesterol measurement (mass/volume) 161 mg/dL < 200 Serum or plasma cholesterol in HDL measurement (mass/volume) 40 mg/dL 40-60 Cholesterol in LDL [mass/volume] in serum or plasma by direct assay 102 mg/dL 1-129 Serum or plasma cholesterol in VLDL measurement (mass/volume) 20 mg/dL 5-40 THYROID STIMULATING HORMONE - 05/21/17 07:57 THYROID STIMULATING HORMONE 2.95 u[iU]/mL 0.35-4.94 Erythrocyte sedimentation rate by westergren method - 05/21/17 07:57 Erythrocyte sedimentation rate by westergren method 14 mm 0-30 Encounters ACCT No. Visit Date/Time Discharge Status Pt. Type Provider Facility Loc./Unit Complaint [id number] 06/28/2018 17:48:16 06/28/2018 23:59:59 CLS Outpatient Derrick Gutiererz [id number] 05/28/2018 13:06:04 05/28/2018 23:59:59 CLS Outpatient Re Suarez [id number] 04/16/2018 15:37:15 04/16/2018 23:59:59 CLS Outpatient Derrick Gutierrez [id number] 04/14/2018 17:17:36 04/14/2018 23:59:59 CLS Outpatient Derrick Gutierrez [id number] 03/24/2018 18:32:19 03/24/2018 23:59:59 CLS Outpatient Ramirez Jessa [id number] 03/18/2018 16:18:56 03/18/2018 23:59:59 CLS Outpatient Derrick Gutierrez [id number] 02/05/2018 16:49:34 02/05/2018 23:59:59 CLS Outpatient Derrick Gutierrez Richard [id number] 04/15/2017 14:22:11 04/15/2017 23:59:59 CLS Outpatient Derrick Gutierrez [id number] 12/11/2014 22:27:41 12/11/2014 23:59:59 CLS Outpatient Ronal Deleon [id number] 05/24/2014 17:12:47 05/24/2014 23:59:59 CLS Outpatient Derrick Gutierrez [id number] 2014 16:34:10 2014 23:59:59 CLS Outpatient Derrick Gutierrez Richard [id number] 04/01/2014 10:49:41 04/01/2014 23:59:59 CLS Outpatient Derrick Gutierrez Richard [id number] 03/13/2014 10:24:55 03/13/2014 23:59:59 CLS Outpatient Ronal Deleon [id number] 06/30/2017 13:13:00 06/30/2017 23:59:59 CLS Outpatient TRUDY SHAH [facility] RAD I73.9 CLAUDICATION [id number] 05/27/2017 10:16:00 05/27/2017 23:59:59 CLS Outpatient MARVA ARRIETA FACC, ALI FACP CCDS [facility] CARD COPD [id number] 05/21/2017 07:43:00 05/21/2017 23:59:59 CLS Outpatient MARVA ARRIETA FACC, ALI FACP CCDS [facility] CARD COPD [id number] 09/21/2018 11:00:00 PEN Preadmit MARVA ARRIETA FACC, ALI FACP CCDS [facility] CATH CHEST DISCOMFORT,SOB [id number] 04/14/2018 14:35:52 Document Registration [id number] 04/14/2018 14:10:55 Document Registration [id number] 04/14/2018 05:17:41 Document Registration [id number] 04/14/2018 05:05:53 Document Registration [id number] 02/21/2018 04:43:44 Document Registration [id number] 02/21/2018 01:36:28 Document Registration [id number] 02/12/2018 16:21:41 Document Registration [id number] 02/12/2018 16:18:00 Document Registration [id number] 02/08/2018 23:10:33 Document Registration [id number] 02/08/2018 23:08:14 Document Registration [id number] 02/08/2018 10:41:03 Document Registration [id number] 02/02/2018 22:35:47 Document Registration [id number] 02/02/2018 22:33:08 Document Registration [id number] 01/18/2018 20:56:46 Document Registration [id number] 01/18/2018 20:44:38 Document Registration [id number] 12/19/2017 01:53:41 Document Registration [id number] 12/19/2017 00:38:17 Document Registration [id number] 10/30/2017 07:59:41 Document Registration [id number] 06/17/2017 00:22:46 Document Registration [id number] 06/17/2017 00:19:28 Document Registration [id number] 06/09/2017 21:38:44 Document Registration [id number] 06/04/2017 12:58:14 Document Registration [id number] 06/04/2017 12:53:55 Document Registration [id number] 03/06/2017 01:09:12 Document Registration [id number] 03/06/2017 01:05:10 Document Registration [id number] 02/02/2017 13:10:46 Document Registration [id number] 04/05/2018 10:00:00 04/05/2018 23:59:59 [facility]
[2018-09-21 09:48] LABS: HEMOGLOBIN 14.1 G/DL (13.3-17.7); MEAN PLATELET VOLUME 12.2 FL (7.4-10.4); RED CELL DISTRIBUTION WIDTH 14.3 % (10.0-14.5); WHITE BLOOD COUNT 10.3 10^3/uL (4.3-11.0)
[2018-09-21] MEDS ORDERED: fioricet (09:52)
[2018-09-21] MEDS ORDERED: RANI150T90 PO (09:52)
[2018-09-21] MEDS ORDERED: ASPI-586 PO (09:52)
[2018-09-21] MEDS ORDERED: ATOR40TA70 PO (09:52)
[2018-09-21] MEDS ORDERED: STEROID (09:52)
[2018-09-21 10:11] LABS: PROTHROMBIN TIME PATIENT 13.1 SEC (12.2-14.7)
[2018-09-21 10:16] LABS: ALANINE AMINOTRANSFERASE 22 U/L (0-55); ALBUMIN 4.4 GM/DL (3.2-4.5); ALKALINE PHOSPHATASE 90 U/L (40-136); BILIRUBIN,TOTAL 0.7 MG/DL (0.1-1.0); BUN/CREATININE RATIO 23; CALCIUM 9.6 MG/DL (8.5-10.1); CARBON DIOXIDE 24 MMOL/L (21-32); CHLORIDE 106 MMOL/L (98-107); CHOLESTEROL 203 MG/DL (< 200); CREATININE SERUM 0.91 MG/DL (0.60-1.30); GFR ESTIMATED > 60; GLUCOSE 97 MG/DL (70-105); HDL CHOLESTEROL 62 MG/DL (40-60); POTASSIUM 3.7 MMOL/L (3.6-5.0); SODIUM 141 MMOL/L (135-145); TOTAL PROTEIN 7.4 GM/DL (6.4-8.2); TRIGLYCERIDES 90 MG/DL (<150); VLDL CHOLESTEROL 18 MG/DL (5-40)
[2018-09-21] MEDS ORDERED: MIDAZOLAM 5 MG/5 ML (VERSED) VIAL ONE (11:03)
[2018-09-21] MEDS ORDERED: fentaNYL INJECTION 100 MCG/2 ML AMP ONE (11:03)
--- NOTE | 2018-09-21 11:53 | Cardiac Procedure Note-CS/ASA ---
Pre-Procedure Note Pre-Op Procedure Note H&P Reviewed The H&P was reviewed, patient examined and no changes noted. Date H&P Reviewed: September 21, 2018 Time H&P Reviewed: 11:53 Conscious Sedation Pre-Proced Time 11:53 ASA Score 3 For ASA 3 and 4: Consider anesthesia and medical clearance. Also, for patients with a history of failed moderate sedation consider anesthesia. Airway Lungs Heart ASA score ASA 1: a normal healthy patient ASA 2: a patient with a mild systemic disease (mid diabetes, controlled hypertension, obesity ASA 3: a patient with a severe systemic disease that limits activity (angina, COPD, prior Myocardial infarction) ASA 4: a patient with an incapacitating disease that is a constant threat to life (CHF, renal failure) ASA 5: a moribund patient not expected to survive 24 hrs. (ruptured aneurysm) ASA 6: a declared brain- patient whose organs are being harvested. For emergent operations, add the letter E after the classification Mallampati Classification Grade 2 Sedation Plan Analgesia, Amnesia, Plan communicated to team members, Discussed options with patient/fam, Discussed risks with patient/fam The patient is an appropriate candidate to undergo the planned procedure, sedation, and anesthesia. The patient immediately re-assessed prior to indication. EILEEN DURHAM MD FACP FAC CCDS September 21, 2018 11:53
--- NOTE | 2018-09-21 12:44 | Discharge Inst-Cardiology ---
Discharge Inst-Cardiac Discharge Medications Continued Medications: Aspirin (Aspir 81) 81 Mg Tablet.dr 81 MG PO DAILY, TAB Atorvastatin Calcium (Atorvastatin Calcium) 40 Mg Tablet 40 MG PO HS, TAB [fioricet] () PRN Ranitidine HCl (Acid Athletics Teacher (RANITIDINE)) 150 Mg Tablet 150 MG PO BID, TAB [steroid dose pack] () EIELEN DURHAM MD FACP FAC CCDS September 21, 2018 12:44
--- NOTE | 2018-09-21 12:44 | Discharge Inst-Post CATH ---
Discharge Inst-CATH/EP Post Cardiac Cath/EP D/C Inst Follow Up/Plan F/u with Dr Baldwin in 2 weeks ACTIVITY * Go Home directly and rest. * Limit activity of the leg (or wrist if it was used) for 7 days including aerobics, swimming, jogging, bicycling, etc. * Restrict stair-climbing for 7 days if possible, if not, climb up with your no n-cath leg, then bring together on the same step. * Avoid lifting, pushing, pulling or excessive movement of the affected ext remity for 7 days. * Customary sexual activity may be resumed after 2 days-use caution not to use a position that strains or causes pain to the affected extremity. * No driving for 24 hours. * NO SMOKING. * Avoid straining for bowel movements for 7 days. * Gentle walking on level ground is allowed. * Returning to work will depend on the type of procedure and the results. Your doctor will discuss this with you. CALL YOUR DOCTOR FOR ANY OF THE FOLLOWING: *If bleeding from the puncture site occurs- Apply gentle pressure to site with clean cloth and call your doctor or EMS. * If a knot or lump forms under the skin, increases in size, or causes pain. * If bruising appears to be worsening or moving further down your leg instead of disappearing. * Temperature above 101 F. CARE OF YOUR GROIN INCISION; * Bruising or purple discoloration of the skin near the puncture site is common. * You may shower only, no bathtub bathing for 5 days. Be careful to avoid slipping as your leg may feel stiff. * If a closure device was used on your femoral artery, please see the attached guide regarding care of the device and your leg. * Leave dressing on FOR 24 hours. CARE OF YOUR WRIST INCISION; * Bruising or purple discoloration of the skin near the puncture site is common. * You may shower. * DO NOT submerge wrist. * Leave dressing on FOR 24 hours. EILEEN BALDWIN MD FACP FAC CCDS September 21, 2018 12:44
[2018-09-21] MEDS ORDERED: PATIENT MAY USE OWN MEDS, ALL PO SCH (12:45)
--- NOTE | 2018-09-21 12:52 | CARDIAC CATHETERIZATION ---
DATE OF SERVICE: 09/21/2018 CARDIAC CATHETERIZATION REPORT The patient is a 58-year-old gentleman, who has multiple coronary artery disease risk factors and who has been experiencing symptoms suggestive of angina. Cardiac catheterization was carried out today after having obtained informed consent. PROCEDURE IN DETAIL: He was brought to the cardiac catheterization laboratory in a fasting state. Right groin was prepared and draped in the usual sterile fashion. Lidocaine 1% was used for local anesthesia. Modified Seldinger technique was used to advance a 5-[place]an sheath in the right femoral artery, 5-[place] JL4 catheter for left coronary angiography, 5-[place] JR4 catheter for right coronary angiography. A 5-[place] pigtail catheter was used for left heart catheterization and left ventricular angiography. Angiography of the right femoral artery was carried out through the sheath. Mynx was used to achieve hemostasis following sheath removal. He tolerated the procedure well. HEMODYNAMICS: Left ventricular end-diastolic pressure following coronary angiography was 10 mmHg. There was no significant pressure gradient on pullback across the aortic valve. Ascending aortic pressure was 116/73 with a mean of 54 mmHg. CORONARY ANGIOGRAPHY: Left main coronary artery, left anterior descending artery, left circumflex artery, right coronary artery do not exhibit any angiographically significant obstructive disease. Right coronary artery is dominant. LEFT VENTRICULAR ANGIOGRAPHY: Left ventricular angiography was carried out in the right anterior oblique projection. Global left ventricular systolic function is normal. No regional wall motion abnormalities were seen. Left ventricular ejection fraction is approximately 60%. CONCLUSIONS: 1. No angiographically significant coronary artery disease. 2. Normal left ventricular end-diastolic pressure. 3. Normal global left ventricular systolic function with ejection fraction of 60 to 65%. DISCUSSION AND RECOMMENDATIONS: Based on results of the study, chest discomfort does not appear to be of cardiac origin. Continuing risk factor modification is advised. Outpatient followup is advised. Job ID: [id number] DocumentID: [id number] Dictated Date: 09/21/2018 12:34:55 Software Systems Engineer Date: 09/21/2018 12:51:26 Dictated By: EILEEN DURHAM MD, MA, FACP, FACC,
== END 2018-09-21 16:15 | disposition home or self-care (01) ==
LOC: CATH 08:41 → SDC 12:57 → CATH 16:15
PROVIDERS: ATTEND Internal Medicine Cardiovascular Disease
DX: R07.89 Other chest pain (principal); E78.2 Mixed hyperlipidemia; E11.9 Type 2 diabetes mellitus without complications; G47.33 Obstructive sleep apnea (adult) (pediatric); J44.9 Chronic obstructive pulmonary disease, unspecified; R06.02 Shortness of breath; Z82.49 Family history of ischemic heart disease and other diseases of the circulatory system; Z87.891 Personal history of nicotine dependence; Z86.711 Personal history of pulmonary embolism; Z86.718 Personal history of other venous thrombosis and embolism; Z91.19 Patient's noncompliance with other medical treatment and regimen; Z79.82 Long term (current) use of aspirin; Z79.899 Other long term (current) drug therapy
CPT/HCPCS: 36415; 80053; 80061; 85027; 85610; 85730; 87081; 93458